=== PATIENT | female | born 1955 | race Two or more races ===

== ENCOUNTER 2017-06-19 11:55 | Outpatient (CLI) | payer OTHER | END 2017-06-19 12:07 | disposition home or self-care (01) | LOC: TOM 11:55 | DX: J47.9 Bronchiectasis, uncomplicated (principal) ==

== ENCOUNTER 2018-09-20 09:58 | Outpatient (CLI) | payer OTHER | END 2018-09-20 10:03 | disposition home or self-care (01) | LOC: MAMO-SONO 09:58 | DX: Z12.31 Encounter for screening mammogram for malignant neoplasm of breast (principal); N61.0 Mastitis without abscess; E04.1 Nontoxic single thyroid nodule ==

== ENCOUNTER 2018-09-26 10:21 | Outpatient (CLI) | payer OTHER | END 2018-09-26 10:24 | disposition home or self-care (01) | LOC: TOM 10:21 | DX: J84.10 Pulmonary fibrosis, unspecified (principal); J47.0 Bronchiectasis with acute lower respiratory infection ==

== ENCOUNTER → 2019-01-15 | Outpatient (CLI) | payer OTHER | END | disposition home or self-care (01) | LOC: NUCLEAR 11:00 | DX: M81.0 Age-related osteoporosis without current pathological fracture (principal) ==

== ENCOUNTER 2019-10-07 14:10 | Outpatient (CLI) | payer OTHER | END 2019-10-07 14:29 | disposition home or self-care (01) | LOC: MAMO-SONO 14:10 | PROVIDERS: ATTEND Internal Medicine Endocrinology, Diabetes & Metabolism | DX: Z12.31 Encounter for screening mammogram for malignant neoplasm of breast (principal); N61.0 Mastitis without abscess; E04.1 Nontoxic single thyroid nodule ==

== ENCOUNTER 2022-09-01 08:07 | Outpatient (CLI) | payer OTHER | END 2022-09-01 08:13 | disposition home or self-care (01) | LOC: SONOGRAMA 08:07 | PROVIDERS: ATTEND Internal Medicine | DX: E04.2 Nontoxic multinodular goiter (principal) ==

== ENCOUNTER 2023-03-16 13:23 | Outpatient (CLI) | payer OTHER | END 2023-03-16 13:53 | disposition home or self-care (01) | LOC: MAMO-SONO 13:23 | DX: Z12.31 Encounter for screening mammogram for malignant neoplasm of breast (principal); N60.39 Fibrosclerosis of unspecified breast; E03.8 Other specified hypothyroidism; E78.00 Pure hypercholesterolemia, unspecified; I70.0 Atherosclerosis of aorta ==

== ENCOUNTER 2023-07-25 08:21 | Outpatient (CLI) | payer OTHER | END 2023-07-25 08:25 | disposition home or self-care (01) | LOC: SONOGRAMA 08:21 | PROVIDERS: ATTEND Internal Medicine Gastroenterology | DX: R16.0 Hepatomegaly, not elsewhere classified (principal) ==

== ENCOUNTER 2024-04-16 13:43 | Outpatient (CLI) | payer OTHER | END 2024-04-16 13:52 | disposition home or self-care (01) | LOC: NUCLEAR 13:43 | PROVIDERS: ATTEND General Practice | DX: M85.80 Other specified disorders of bone density and structure, unspecified site (principal); M81.0 Age-related osteoporosis without current pathological fracture ==